=== PATIENT | female | born 1945 | race Caucasian/White ===

== ENCOUNTER 2016-10-22 07:36 | Day surgery (SDC) | payer OTHER, MEDICARE ==
[~2016-10-22] VITALS: Ht 160 cm; Wt 83.0 kg
[~2016-10-22 07:36] MED LIST: ATENOLOL50 MG PO; ATORVASTATIN CA80 MG PO; CALCIUM 600 +1 EAC6 PO; FLOMAX0.4 MG PO; FLUTICASONE PRO16 GM BOTH NARES; MOTRIN600 MG PO; PAROXETINE HCL20 MG PO; PERCOCET 5/31 TABLET PO; VITAMIN D31000 UNI2 PO; ZOFRAN ODT4 MG PO
[2016-10-22 08:21] VITALS: BP 130/67
[2016-10-22 16:45] VITALS: BP 148/71
[2016-10-22 17:50] VITALS: BP 114/58
[2016-10-22 18:45] VITALS: BP 145/74
== END 2016-10-22 18:51 | disposition home or self-care (01) ==
LOC: SDC 07:36 → NUC 09:00 → SDC 18:51
DX: D05.11 Intraductal carcinoma in situ of right breast (principal); L90.0 Lichen sclerosus et atrophicus; M85.80 Other specified disorders of bone density and structure, unspecified site; Z80.3 Family history of malignant neoplasm of breast; Z80.0 Family history of malignant neoplasm of digestive organs; Z82.5 Family history of asthma and other chronic lower respiratory diseases; Z83.3 Family history of diabetes mellitus; Z82.49 Family history of ischemic heart disease and other diseases of the circulatory system
CPT/HCPCS: 78195; 78999; 88305; 88307; 88341 TC; 88342 TC; 88360; A9541; J0690; J1100; J1170; J2250; J2405; J2710; J3010; S0020

== ENCOUNTER 2017-10-03 07:36 | Day surgery (SDC) | payer OTHER, MEDICARE ==
[~2017-10-03] VITALS: Ht 162.6 cm; Wt 86.3 kg
[~2017-10-03 07:36] MED LIST changes: +VITAMIN C1000 MG PO
[2017-10-03 08:23] VITALS: BP 118/61
[2017-10-03 11:23] VITALS: BP 134/85
[2017-10-03 12:27] VITALS: BP 135/66
== END 2017-10-03 13:35 | disposition home or self-care (01) ==
LOC: SDC 07:36
DX: N84.0 Polyp of corpus uteri (principal); N95.0 Postmenopausal bleeding; N88.2 Stricture and stenosis of cervix uteri; J45.909 Unspecified asthma, uncomplicated; I10 Essential (primary) hypertension; Z85.3 Personal history of malignant neoplasm of breast; Z88.2 Allergy status to sulfonamides
CPT/HCPCS: 88305; J0131; J0690; J1100; J1885; J2250; J2405; J3010; J7120